=== PATIENT | female | born 1935 | race Asian ===

== ENCOUNTER 2018-11-21 14:38 | Emergency (ER) | payer BC ==
[~2018-11-21] VITALS: Ht 142.2 cm; Wt 49.9 kg
[2018-11-21 14:41] VITALS: BP 159/74; PULSE 70; RESP 18; Ht 142.2 cm; Wt 49.9 kg
[2018-11-21] MEDS ORDERED: DOXY100T20 PO (15:46)
[2018-11-21] MEDS ORDERED: BENZ-6 PO (15:46)
[2018-11-21] MEDS ORDERED: BENZONATATE 100 MG CAP PO ONE (16:00)
--- NOTE | 2018-11-21 16:13 | ERD ---
ER Documentation Chief Complaint Chief Complaint runny nose, cough, wheezing on/off X 2 days HPI This is an 82-year-old female with a history of hypertension hypercholesterolemia presents ED with complaints of URI-like symptoms for the past 3 weeks. Admits to runny nose, cough, congestion. Also admits to wheezing here and there. Denies fever, chills, nausea, vomiting, diarrhea, constipation, chest pain, shortness breath, trouble breathing, abdominal pain all the symptoms. Denies history of smoking. No drug or alcohol use. No recent travel or sick contact. No known drug allergy ROS All systems reviewed and are negative except as per history of present illness. Medications Home Meds Active Scripts Benzonatate* (Tessalon Perle*) 100 Mg Capsule, 100 MG PO Q8H PRN for COUGH, #15 CAP Prov:VELVET MALCOLM PA-C 11/21/18 Doxycycline Hyclate* (Doxycycline Hyclate*) 100 Mg Tablet.dr, 100 MG PO BID for 10 Days, TAB Prov:VELVET MALCOLM PA-C 11/21/18 Allergies Allergies: Coded Allergies: No Known Allergy (Unverified , 11/21/18) PMhx/Soc Medical and Surgical Hx: pt denies Medical Hx, pt denies Surgical Hx Hx Alcohol Use: No Hx Substance Use: No Hx Tobacco Use: No Smoking Status: Never smoker FmHx Family History: No diabetes Physical Exam Vitals Vital Signs Date Temp Pulse Resp B/P (MAP) Pulse Ox O2 O2 Flow FiO2 Time Delivery Rate 11/21/18 97.8 16:09 11/21/18 70 18 159/74 99 14:41 (102) Physical Exam Physical Exam Vitals signs: Reviewed by me. General: Well developed, well nourished, in no acute distress. Patient is awake and alert. Head: Normocephalic, atraumatic. Eyes: Normal conjunctiva, Pupils PERRLA, EOM intact grossly ENT: Pharynx is clear, Moist mucous membranes, external ears, nose and mouth normal, no tonsillar adenopathy, exudate or erythema, no kissing tonsils, no uvula deviation, tympanic membrane visualized bilaterally no bulging, erythema, purulent air-fluid line seen, Neck: Supple, no masses, lymphadenopathy or JVD Respiratory: Clear to auscultation bilaterally with no wheezing, rhonchi, rales, no distress, no wheezing Cardiovascular: RRR, no murmurs, rubs, or gallops Abdominal: Soft, non-tender, non-distended, no peritoneal signs : Deferred MSK: No edema Back: No midline tenderness Neurologic: Alert and oriented, moving all extremities, normal speech, no focal weakness, no cerebellar signs. Normal mentation Skin: warm and dry, No rash Psych: Normal mood Results 24 hrs Current Medications Medications Dose Sig/Leonor Start Time Status Last (Trade) Ordered Route PRN Stop Time Admin Dose Reason Admin Benzonatate 100 mg ONCE ONCE 11/21/18 DC (Tessalon) PO 16:00 11/21/18 16:01 Procedures/MDM ER COURSE: The patient was given Tessalon Perles for cough The medication was well tolerated and the patient reports improvement in symptoms. The patient was stable throughout ED course. I kept the patient and/or family informed of laboratory and diagnostic imaging results throughout the emergency room course. The patient was promptly evaluated and a treatment plan was devised based on H&P and other data. This plan was discussed with the patient who agreed and had no further questions or concerns prior to discharge. MEDICAL DECISION MAKIN-year-old female presents ED with complaints of URI-like symptoms for the past 3 weeks. Patient is extremely well-appearing and physical examination is unremarkable. The patient's clinical presentation is very consistent with an common cold. Given patient's age we will treat with antibiotics. no evidence of pneumonia. The patient is well-appearing without respiratory distress. Normal oxygen saturation. X-ray imaging not indicated. No indication for Tamiflu. The patient does not exhibit any clinical signs or symptoms concerning for serious bacterial infection or systemic illness. Based on history and clinical exam findings the patient does not appear to have evidence of pneumonia, strep pharyngitis, urinary tract infection, bacteremia, sepsis, or meningitis. For these reasons I do not believe it is necessary to obtain laboratory testing or diagnostic imaging. Discussed with patient and son regarding doing advanced imaging and they have decided against this. I believe it would be appropriate for symptom control, and close outpatient primary care follow-up. We discussed follow up with the patient's primary care doctor within 24 to 48 hours as needed. We also discussed return to the emergency room for worsening symptoms or worsening condition. DISPOSITION PLAN: We discussed follow up with the patient's primary care doctor within 24 to 48 hours. Patient counseled regarding my diagnostic impression and care plan. Prior to discharge all questions answered. Pt agrees with treatment plan and understands strict return precautions. Precautionary instructions provided including instructions to return to the ER if not improving or for any worsening or changing symptoms or concerns. SPECIALIST FOLLOW UP RECOMMENDED: None Patient has been advised to follow up with primary care in 1-2 days. Disclaimer: Inadvertent spelling and grammatical errors are likely due to EHR/dictation software use and do not reflect on the overall quality of patient care. Also, please note that the electronic time recorded on this note does not necessarily reflect the actual time of the patient encounter. Blood Pressure Assessment: Patient's blood pressure was elevated (>120/80) but appears stable without evidence of hypertension emergency or urgency. The patient was counseled about the risks of hypertension and urged to pursue outpatient monitoring and therapy within a week with their primary care physician. Departure Diagnosis: Primary Impression: Upper respiratory infection URI type: unspecified URI Qualified Codes: J06.9 - Acute upper respiratory infection, unspecified Condition: Stable Patient Instructions: Preventing Common Respiratory Infections Referrals: [facility] YOU HAVE RECEIVED A MEDICAL SCREENING EXAM AND THE RESULTS INDICATE THAT YOU DO NOT HAVE A CONDITION THAT REQUIRES URGENT TREATMENT IN THE EMERGENCY DEPARTMENT. FURTHER EVALUATION AND TREATMENT OF YOUR CONDITION CAN WAIT UNTIL YOU ARE SEEN IN YOUR DOCTORS OFFICE WITHIN THE NEXT 1-2 DAYS. IT IS YOUR RESPONSIBILITY TO MAKE AN APPOINTMENT FOR FOLOW-UP CARE. IF YOU HAVE A PRIMARY DOCTOR --you should call your primary doctor and schedule an appointment IF YOU DO NOT HAVE A PRIMARY DOCTOR YOU CAN CALL OUR PHYSICIAN REFERRAL HOTLINE AT IF YOU CAN NOT AFFORD TO SEE A PHYSICIAN YOU CAN CHOSE FROM THE FOLLOWING [facility] [address] [facility]. [facility] [address] [facility]. [facility] [address] [facility]. [facility] [address] [facility]. [facility] [address] [facility]. [facility]. [address] Additional Instructions: Patient advised to return to the ED immediately for new or worsening symptoms. Patient advised to follow up with primary care provider in the next 24-48 hours. Patient verbalized understanding and agrees with treatment plan and course of action. If patient has no primary care they may follow up with one of the community clinics listed on the following page or one of the options listed below [facility] + [facility] [address] [place] [id number] or [facility] [id number] [place] [id number] or [facility] [address] [place] [address] VELVET MALCOLM PA-C Nov 21, 2018 16:13
== END 2018-11-21 16:15 | disposition home or self-care (01) ==
LOC: FTE 14:38
DX: J06.9 Acute upper respiratory infection, unspecified (principal); I10 Essential (primary) hypertension
CPT/HCPCS: Z7502; Z7610; 99283

== ENCOUNTER 2019-09-16 17:09 | Emergency (ER) | payer BC ==
[~2019-09-16] VITALS: Wt 68.0 kg
[~2019-09-16 17:09] MED LIST: BENZ-6 PO; DOXY-214 PO
[2019-09-16 18:43] VITALS: BP 139/69; PULSE 73; RESP 16
== END 2019-09-16 18:44 | disposition home or self-care (01) ==
LOC: FTE 17:09
DX: R19.7 Diarrhea, unspecified (principal)
CPT/HCPCS: 99282